=== PATIENT | female | born 1945 | race African-American/Black ===

== ENCOUNTER 2017-01-23 15:31 | Emergency (ER) | payer OTHER, MEDICARE ==
[2017-01-23 15:38] VITALS: BMI 32.2
--- NOTE | 2017-01-23 15:44 | PDOC ---
Rapid Medical Evaluation Chief Complaint: Weakness Time Seen by Provider: 01/23/17 15:37 Medical Evaluation: Allergies Allergy/AdvReac Type Severity Reaction Status Date / Time iodine Allergy Severe Rash Verified 01/23/17 15:34 Penicillins Allergy Severe Rash Verified 01/23/17 15:34 SHRIMP Allergy Rash Uncoded 01/23/17 15:34 Vital Signs Temp Pulse Resp BP Pulse Ox 97.7 F 75 18 151/75 99 01/23/17 15:35 01/23/17 15:35 01/23/17 15:35 01/23/17 15:35 01/23/17 15:35 01/23/17 15:38 RME Note: I have performed a brief, in-person evaluation of this patient . This patient presents with CC: sudden weakness while visiting family; no CP, SOB, diaphoresis Pertinent PE findings are: VSS, Elías x 4 Equal video clerk; I have ordered: labs, EKG The patient will proceed to ED for further evaluation.
[2017-01-23] MEDS ORDERED: SODIUM CHLORIDE 1,000 ML IV ONE (16:01)
[2017-01-23 17:32] LABS: BASOPHIL 0.6 % (0-2.0); EOSINOPHIL 0.6 % (0-4.5); MCH 30.8 pg (25.7-33.7); MCHC 32.9 g/dl (32.0-36.0); MEAN CELL VOLUME 93.9 fl (80-96); MEAN PLT VOLUME 11.3 fl (7.5-11.1); RDW 13.8 % (11.6-15.6); WHITE BLOOD COUNT 6.5 K/mm3 (4.0-10.0)
--- NOTE | 2017-01-23 17:46 | PDOC ---
[id number] 4d No Limitations - History of Present Illness Initial Comments: 01/23/17 19:17 The patient is a 71 year old female, with a significant past medical history of asthma, hypertension, hyperlipidemia, diabetes, CVA and onset of Parkinsons disease, who presents to the emergency department with dizziness since earlier this afternoon. The patient was in her normal state of health this morning. This afternoon, the patient was upstairs in this hospital visiting with her , who is an admitted patient, when she suddenly felt dizzy upon standing up. The patient reports that the dizziness felt like the room was spinning and that it lasted approximately half an hour before subsiding. She decided to visit the ED for further evaluation given that her prior CVA presented similarly with sudden onset dizziness. Currently in the ED, the patient reports that she is not experiencing the dizziness anymore. The patient denies shortness of breath or chest pain. The patient denies fever, chills, headache or any blurry vision, double vision, neck pain, back pain. The patient denies nausea, vomiting diarrhea, constipation, melena/bpr or dysuria. Family is at the bedside. Allergies: Iodine, Penicillins, Shrimp. Past Surgical History: Spinal Fusion Surgery (Lower Back - 2004), Right Shoulder Blade Surgery (2004), Cholecystectomy (2006). Social History: Non smoker. Denies alcohol or drug use. PCP: Dr. Guzman Neurologist: Dr. Colby <Stephani Morris - Last Filed: 01/23/17 19:17> <Keshav Muñoz - Last Filed: 01/27/17 10:20> - General Chief Complaint: Weakness Stated Complaint: FATIGUE Time Seen by Provider: 01/23/17 15:37 Past History <Stephani Morris - Last Filed: 01/23/17 19:17> - Past Medical History Anemia: No Asthma: Yes Cancer: No Cardiac Disorders: Yes (TIA -12/2005) CVA: No COPD: No CHF: No Dementia: No Diabetes: No GI Disorders: No Disorders: No HTN: Yes Hypercholesterolemia: Yes Liver Disease: No Seizures: No Thyroid Disease: No - Surgical History Abdominal Surgery: No Appendectomy: No Cardiac Surgery: No Cholecystectomy: Yes (2006) Lung Surgery: No Neurologic Surgery: Yes (SPINAL EFFUSION SX LOWER BACK - 2004) Orthopedic Surgery: Yes (RT SHOULDER BLADE 2004) - Psycho/Social/Smoking Cessation Hx Suicidal Ideation: No Smoking History: Never smoked Hx Alcohol Use: No Drug/Substance Use Hx: No Substance Use Type: None Hx Substance Use Treatment: No <Keshav Muñoz - Last Filed: 01/27/17 10:20> - Past Medical History Allergies/Adverse Reactions: Allergies Allergy/AdvReac Type Severity Reaction Status Date / Time iodine Allergy Severe Rash Verified 01/23/17 15:34 Penicillins Allergy Severe Rash Verified 01/23/17 15:34 SHRIMP Allergy Rash Uncoded 01/23/17 15:34 Home Medications: Ambulatory Orders Albuterol Sulfate [Proair Hfa -] 2 inh PO PRN PRN 04/15/15 Atorvastatin Ca [Lipitor] 10 mg PO DAILY 04/15/15 Carbidopa/Levodopa [Carbidopa-Levo ER 25-100 Tab] 1 each PO UTDICT 04/15/15 Clopidogrel Bisulfate [Plavix -] 75 mg PO DAILY 04/15/15 Esomeprazole Mag Trihydrate [Nexium] 40 mg PO DAILY 04/15/15 Estradiol 1 mg PO DAILY 04/15/15 Lisinopril/Hydrochlorothiazide [Lisinopril-Hctz 20-12.5 mg Tab] 1 each PO DAILY 04/15/15 Montelukast Na [Singulair -] 10 mg PO HS 04/15/15 Ipratropium 0.02% Nebulizer [Atrovent] 1 neb NEB BID 01/23/17 Rasagiline Mesylate [Azilect] 1 mg PO DAILY 01/23/17 Review of Systems - Review of Systems Able to Perform ROS?: Yes Comments:: 01/23/17 19:18 CONSTITUTIONAL: No reported: Fever, Chills, Diaphoresis, Generalized Weakness, Malaise, Loss of Appetite HEENT: No reported: Rhinorrhea, Nasal Congestion, Throat Pain, Throat Swelling, Difficulty Swallowing, Mouth Swelling, Ear Pain, Eye Pain, Visual Changes CARDIOVASCULAR: No reported: Chest Pain, Syncope, Palpitations, Irregular Heart Rate, Lightheadedness, Peripheral Edema RESPIRATORY: No reported: Cough, Shortness of Breath, SOB with Exertion, Orthopnea, Wheezing , Stridor, Hemoptysis GASTROINTESTINAL: No reported: Abdominal pain, Abdominal Distension, Nausea, Vomiting, Diarrhea, Constipation, Melena, Hematochezia GENITOURINARY: No reported: Dysuria, Frequency, Urgency, Hesitancy, Flank Pain, Genital Pain MUSCULOSKELETAL: No reported: Myalgia, Arthralgia, Joint Swelling, Back pain, Neck Pain SKIN: No reported: Rash, Itching, Pallor HEMATOLOGIC/IMMUNOLOGIC: No reported: Easy Bleeding, Easy Bruising, Lymphadenopathy, Frequent infections ENDOCRINE: No reported: Unexplained Weight Gain, Unexplained Weight Loss, Heat Intolerance , Cold Intolerance NEUROLOGIC: Reported: +Dizziness No reported: Headache, Focal Weakness, Paresthesias, Vertigo, Lightheadedness, Unsteady Gait, Seizure, Mental Status Changes, Incontinence PSYCHIATRIC: No reported: Anxiety, Depression <Stephani Morris - Last Filed: 01/23/17 19:17> *Physical Exam - Vital Signs Last Vital Signs Temp Pulse Resp BP Pulse Ox 97.7 F 69 16 127/95 100 01/23/17 15:35 01/23/17 17:20 01/23/17 17:20 01/23/17 17:20 01/23/17 17:20 - Physical Exam Comments: 01/23/17 19:18 GENERAL: The patient is awake, alert, and fully oriented, nontoxic - in no acute distress. HEAD: Normocephalic, atraumatic. EYES: Extraocular movements intact, sclera anicteric, conjunctiva clear. ENT: Normal voice, moist mucous membranes. NECK: Normal range of motion, supple. LUNGS: Breath sounds equal, clear to auscultation bilaterally. No wheezes, no rhonchi, no rales. HEART: Regular rate and rhythm, without murmur, rub or gallop. ABDOMEN: Soft, nontender, normoactive bowel sounds. No guarding, no rebound. No CVA tenderness EXTREMITIES: Normal range of motion, no edema. No clubbing or cyanosis. No cords , erythema, or tenderness. NEUROLOGICAL: Mental status: The patient is oriented x3. Cranial nerves: Cranial nerves II through XII are intact Motor: The upper extremities are 5 over 5 in all muscle groups. The lower extremities are 5 over 5 in all muscle groups. No pronator drift. Sensation: Sensation is intact to light touch throughout. Neg romberg Cerebellar: Nrclnx-vzomce-xtmf is normal in both upper extremities. Heel-knee- argueta is normal in both lower extremities. Reflexes: 2+ and symmetric in the upper and lower extremities. Gait: Normal. Heel and toe walking are normal. Tandem gait is normal. PSYCH: Normal mood, normal affect. SKIN: Warm, dry, normal turgor. <Stephani Morris - Last Filed: 01/23/17 19:17> - Vital Signs Last Vital Signs Temp Pulse Resp BP Pulse Ox 97.7 F 75 18 151/75 99 01/23/17 15:35 01/23/17 15:35 01/23/17 15:35 01/23/17 15:35 01/23/17 15:35 <Keshav Muñoz - Last Filed: 01/27/17 10:20> Heart Score/ECG Review - ECG Impressions Comment:: 01/23/17 18:51 Twelve-lead EKG was performed and reviewed by me. There is normal sinus rhythm with a normal rate. Rate of 70 The axis is normal. The intervals are normal. There is abnormal R wave progression There are no ST or T wave abnormalities. <Keshav Muñoz - Last Filed: 01/27/17 10:20> ED Treatment Course - LABORATORY CBC & Chemistry Diagram: 01/23/17 16:37 01/23/17 16:37 - ADDITIONAL ORDERS Additional order review: Laboratory Results 01/23/17 01/23/17 01/23/17 17:55 16:37 16:37 INR Cancelled PTT (Actin FS) Cancelled Sodium Cancelled Cancelled Potassium Cancelled Cancelled Chloride Cancelled Cancelled Carbon Dioxide Cancelled Cancelled Anion Gap Cancelled Cancelled BUN Cancelled Cancelled Creatinine Cancelled Cancelled Creat Clearance w eGFR Cancelled Cancelled Random Glucose Cancelled Cancelled Calcium Cancelled Cancelled Total Bilirubin Cancelled Cancelled AST Cancelled Cancelled ALT Cancelled Cancelled Alkaline Phosphatase Cancelled Cancelled Creatine Kinase Cancelled Cancelled Troponin I Cancelled Cancelled Total Protein Cancelled Cancelled Albumin Cancelled Cancelled 01/23/17 16:37 RBC 3.69 MCV 93.9 MCHC 32.9 RDW 13.8 MPV 11.3 H Neutrophils % 71.0 Lymphocytes % 20.6 Monocytes % 7.2 Eosinophils % 0.6 Basophils % 0.6 - Medications Given in the ED: ED Medications Discontinued Medications Generic Name Dose Route Start Last Admin Trade Name Freq PRN Reason Stop Dose Admin Sodium Chloride 1,000 mls @ 1,000 mls/hr 01/23/17 16:01 01/23/17 16:20 Normal Saline - IV 01/23/17 17:00 1,000 mls/hr .Q1H ONE Administration <EdgecombeStephani vanegas - Last Filed: 01/23/17 19:17> - LABORATORY CBC & Chemistry Diagram: 01/23/17 16:37 01/23/17 19:20 - ADDITIONAL ORDERS Additional order review: 01/23/17 16:37 RBC 3.69 MCV 93.9 MCHC 32.9 RDW 13.8 MPV 11.3 H Neutrophils % 71.0 Lymphocytes % 20.6 Monocytes % 7.2 Eosinophils % 0.6 Basophils % 0.6 - RADIOLOGY Radiology Studies Ordered: Category Date Time Status CHEST X-RAY PORTABLE* [RAD] Stat Radiology 01/23/17 16:01 Taken <Keshav Muñoz - Last Filed: 01/27/17 10:20> Medical Decision Making - Medical Decision Making 01/23/17 18:52 71-year-old female history of asthma, hypertension, high cholesterol, parkinsons , , type 2 diabetes presenting with approximately 30 minutes of lightheadedness/ vertigo just prior to presentation onset of the patient's stood up while she was at her husbands bedside - no associated headache, chest pain, shortness of breath, vision changes, numbness, weakness, tingling. The patient is currently asymptomatic denies any vertigo, with a unremarkable physical exam including no cerebellar findings nor lateralizing neurologic findings. Suspect possible orthostasis vs vertigo Consider posterior CVA will obtain will obtain a CT head, blood work to rule out anemia, metabolic derangements EKG to screen for arrhythmia Will reassess, and discussed with Dr. Guzman 01/23/17 19:49 pts cgbc unremarkable awaiting CMP ua shows ketones - likely due to starvation as pt has had significantly decrased hydration/eating since her has been in [facility]. case dw / thomas -asim romero if the pt is asymptmoatic, labs and ct negative, pt can be discharged if albs/ct abnormal or pt not feeling well - will place in observation and will notify dr. guzman pt signed out to dr. sinesterrra to reassess and disposition the patient. <Keshav Muñoz - Last Filed: 01/27/17 10:20> *DC/Admit/Observation/Transfer - Attestations Scribe Attestion: 01/23/17 18:32 Documentation prepared by Stephani Morris, acting as medical director occupational health for Keshav Muñoz MD. <Stephani Morris - Last Filed: 01/23/17 19:17> <Keshav Muñoz - Last Filed: 01/27/17 10:20> Diagnosis at time of Disposition: Dizziness - Discharge Dispostion Disposition: HOME - Referrals Referrals: Berta Guzman MD [Primary Care Provider] - - Patient Instructions Printed Discharge Instructions: DI for Dizziness-Nonvertigo
[2017-01-23 18:46] LABS: URINE APPEARANCE SLCLOUDY; URINE BILIRUBIN NEGATIVE (NEGATIVE); URINE BLOOD NEGATIVE (NEGATIVE); URINE COLOR LTYELLOW; URINE GLUCOSE (UA) NEGATIVE (NEGATIVE); URINE KETONE TRACE (NEGATIVE); URINE LEUK ESTERASE NEGATIVE (NEGATIVE); URINE NITRITE NEGATIVE (NEGATIVE); URINE PROTEIN NEGATIVE (NEGATIVE); URINE UROBILINOGEN NEGATIVE E.U./dl (0.2-1.0)
[2017-01-23 19:06] LABS: PLATELET COMMENT2 NO CLUMPING NOTED; PLATELET COUNT 166 K/MM3 (134-434); PLATELET ESTIMATE DECREASED (NORMAL)
[2017-01-23 20:07] LABS: ALBUMIN 3.2 g/dl (3.4-5.0); ANION GAP 5 (8-16); BILIRUBIN,TOTAL 0.4 mg/dL (0.2-1.0); CALCIUM 8.3 mg/dL (8.5-10.1); CO2 32 mmol/L (21-32); CREATININE 0.9 mg/dL (0.55-1.02); GLUCOSE,RANDOM 112 mg/dL (74-106); SGPT/ALT 9 U/L (12-78); TOT PROT 6.5 g/dl (6.4-8.2)
[2017-01-23 20:09] LABS: ALK PHOS 72 U/L (45-117); TROPONIN I < 0.02 ng/ml (0.00-0.05)
[2017-01-23 20:11] LABS: SGOT/AST 15 U/L (15-37)
[2017-01-23 20:26] LABS: INR 1.04 (0.82-1.09); PROTHROMBIN TIME (PATIENT) 11.4 SEC (9.98-11.88)
[2017-01-23 20:28] LABS: ACTIVATED PTT 41.6 SECONDS (26.9-34.4)
--- NOTE | 2017-01-23 23:18 | PDOC ---
*Physical Exam - Vital Signs Last Vital Signs Temp Pulse Resp BP Pulse Ox 97.7 F 69 16 127/95 100 01/23/17 15:35 01/23/17 17:20 01/23/17 17:20 01/23/17 17:20 01/23/17 17:20 ED Treatment Course - LABORATORY CBC & Chemistry Diagram: 01/23/17 16:37 01/23/17 19:20 - ADDITIONAL ORDERS Additional order review: Laboratory Results 01/23/17 01/23/17 01/23/17 19:45 19:20 19:20 INR 1.04 Cancelled PTT (Actin FS) 41.6 H Cancelled Sodium 141 Potassium 4.5 Chloride 104 Carbon Dioxide 32 Anion Gap 5 L BUN 19 H Creatinine 0.9 Creat Clearance w eGFR > 60 Random Glucose 112 H D Calcium 8.3 L Total Bilirubin 0.4 D AST 15 D ALT 9 L D Alkaline Phosphatase 72 Creatine Kinase 115 Troponin I < 0.02 Total Protein 6.5 Albumin 3.2 L Urine Color Urine Appearance Urine pH Ur Specific Stevens Urine Protein Urine Glucose (UA) Urine Ketones Urine Blood Urine Nitrite Urine Bilirubin Urine Urobilinogen Ur Leukocyte Esterase 01/23/17 01/23/17 01/23/17 18:30 17:55 16:37 INR PTT (Actin FS) Sodium Cancelled Cancelled Potassium Cancelled Cancelled Chloride Cancelled Cancelled Carbon Dioxide Cancelled Cancelled Anion Gap Cancelled Cancelled BUN Cancelled Cancelled Creatinine Cancelled Cancelled Creat Clearance w eGFR Cancelled Cancelled Random Glucose Cancelled Cancelled Calcium Cancelled Cancelled Total Bilirubin Cancelled Cancelled AST Cancelled Cancelled ALT Cancelled Cancelled Alkaline Phosphatase Cancelled Cancelled Creatine Kinase Cancelled Cancelled Troponin I Cancelled Cancelled Total Protein Cancelled Cancelled Albumin Cancelled Cancelled Urine Color Ltyellow Urine Appearance Slcloudy Urine pH 7.0 Ur Specific Stevens 1.016 Urine Protein Negative Urine Glucose (UA) Negative Urine Ketones Trace H Urine Blood Negative Urine Nitrite Negative Urine Bilirubin Negative Urine Urobilinogen Negative Ur Leukocyte Esterase Negative 01/23/17 16:37 INR Cancelled PTT (Actin FS) Cancelled Sodium Potassium Chloride Carbon Dioxide Anion Gap BUN Creatinine Creat Clearance w eGFR Random Glucose Calcium Total Bilirubin AST ALT Alkaline Phosphatase Creatine Kinase Troponin I Total Protein Albumin Urine Color Urine Appearance Urine pH Ur Specific Stevens Urine Protein Urine Glucose (UA) Urine Ketones Urine Blood Urine Nitrite Urine Bilirubin Urine Urobilinogen Ur Leukocyte Esterase 01/23/17 16:37 RBC 3.69 MCV 93.9 MCHC 32.9 RDW 13.8 MPV 11.3 H Neutrophils % 71.0 Lymphocytes % 20.6 Monocytes % 7.2 Eosinophils % 0.6 Basophils % 0.6 - Medications Given in the ED: ED Medications Discontinued Medications Generic Name Dose Route Start Last Admin Trade Name Freq PRN Reason Stop Dose Admin Sodium Chloride 1,000 mls @ 1,000 mls/hr 01/23/17 16:01 01/23/17 16:20 Normal Saline - IV 01/23/17 17:00 1,000 mls/hr .Q1H ONE Administration *DC/Admit/Observation/Transfer Diagnosis at time of Disposition: Dizziness - Discharge Dispostion Disposition: HOME Condition at time of disposition: Improved Admit: No - Referrals Referrals: Berta Javed MD [Primary Care Provider] - - Patient Instructions Printed Discharge Instructions: DI for Dizziness-Nonvertigo - Post Discharge Activity
[2017-01-23 23:27] VITALS: BP 130/80; PULSE 70; TEMP 97.9
--- NOTE | 2017-01-24 12:06 | EKG ---
Test Reason : Blood Pressure : / mmHG Vent. Rate : 070 BPM Atrial Rate : 070 BPM P-R Int : 170 ms QRS Dur : 086 ms QT Int : 404 ms P-R-T Axes : 052 008 049 degrees QTc Int : 436 ms NORMAL SINUS RHYTHM POSSIBLE LEFT ATRIAL ENLARGEMENT POSSIBLE ANTERIOR INFARCT , AGE UNDETERMINED ABNORMAL ECG NO PREVIOUS ECGS AVAILABLE Confirmed by RAMSES LOPEZ MD ([id number]) on 01/24/2017 12:06:30 PM Referred By: Confirmed By:RAMSES LOPEZ MD
== END 2017-01-23 23:27 | disposition home or self-care (01) ==
LOC: JER 15:31
PROC: 3E0337Z Introduction of Electrolytic and Water Balance Substance into Peripheral Vein, Percutaneous Approach (ICD-10-PCS; principal; 2017-01-23)
DX: R42 Dizziness and giddiness (principal); I10 Essential (primary) hypertension; E11.9 Type 2 diabetes mellitus without complications; E78.00 Pure hypercholesterolemia, unspecified; G20 Parkinson's disease; Z86.73 Personal history of transient ischemic attack (TIA), and cerebral infarction without residual deficits
CPT/HCPCS: 36415; 70450-TC; 71010-TC; 80053; 81003; 82550; 84484; 85025; 85610; 85730; 87086; 93005; 93010; 96360; 99284-25